=== PATIENT | female | born 1980 | race Caucasian/White ===

== ENCOUNTER 2020-04-27 18:47 | Emergency (ER) | payer OTHER ==
[~2020-04-27] VITALS: Ht 165.1 cm; Wt 75.0 kg
--- NOTE | 2020-04-27 19:10 | PHYS DOC ---
Past History Past Surgical History: Cholecystectomy, Tonsillectomy General Adult EDM: Chief Complaint: NAUSEA/VOMITING/DIARRHEA HPI: HPI: ".. I just so .. Nauseated..... Not actively vomiting been constant. Last 24-48 hrs. Stomach symptoms that abdomen, crampy hyperactive...." Patient is 40 year old female dependent who presents with above hx and complaints generalized abdomen discomfort, nausea, and malaise. Patient normally follows at [facility] for care. Did have a recent tonsillectomy on 04/23. Has had previous gallstone removal 2019. No specific history of bad food. Eating the same food as everyone else no one else is ill. No specific ill contacts. Is on city water. Patient did try 8 mg of Zofran earlier today and then 4 mg later no response to the nausea. Patient does not feel she can be since has had a surgical clipping. No recent travel outside the [place] area. Patient's had previous abdomen surgery of cholecystectomy and 2019 and x2. Patient normally follows at [facility] for care. Review of Systems: Review of Systems: Constitutional: Denies fever or chills Eyes: Denies change in visual acuity HENT: Denies nasal congestion or sore throat Respiratory: Denies cough or shortness of breath Cardiovascular: Denies chest pain or edema GI: Mild generalized abdominal pain, nausea,. No active vomiting, bloody stools or diarrhea : Denies dysuria Musculoskeletal: Denies back pain or joint pain Integument: Denies rash Neurologic: Denies headache, focal weakness or sensory changes Endocrine: Denies polyuria or polydipsia Lymphatic: Denies swollen glands Psychiatric: Denies depression or anxiety Family History: Family History: Noncontributory to presentation Current Medications: Current Meds: See nursing for home meds Allergies: Allergies: Allergic to Celebrex and codeine Physical Exam: PE: Constitutional: Moderate acute distress, non-toxic appearance. [] HENT: Normocephalic, atraumatic, bilateral external ears normal, oropharynx dry,, no oral exudates, nose normal. Eschar from tonsillectomy Eyes: PERRLA, EOMI, conjunctiva normal, no discharge. [] Neck: Normal range of motion, no tenderness, supple, no stridor. [] Cardiovascular:Heart rate regular rhythm, no murmur [] Lungs & Thorax: Bilateral breath sounds equal apex on auscultation [] Abdomen: Bowel sounds hyperactive, soft, central abdomen tenderness, no masses, no pulsatile masses. [] Rebound central abdomen. Old surgical scars. Skin: Warm, dry, no erythema, no rash. [] Back: No tenderness, no CVA tenderness. [] Extremities: No tenderness, no cyanosis, no clubbing, ROM intact, no edema. No psoas sign. Neurologic: Alert and oriented X 3, normal motor function, normal sensory function, no focal deficits noted. [] Psychologic: Affect anxious, judgement normal, mood normal. [] EKG: EKG: [] Radiology/Procedures: Radiology/Procedures: [] Heart Score: Risk Factors: Risk Factors: DM, Current or recent (<one month) smoker, HTN, HLP, family history of CAD, obesity. Risk Scores: Score 0 - 3: 2.5% MACE over next 6 weeks - Discharge Home Score 4 - 6: 20.3% MACE over next 6 weeks - Admit for Clinical Observation Score 7 - 10: 72.7% MACE over next 6 weeks - Early Invasive Strategies Course & Med Decision Making: Course & Med Decision Making Pertinent Labs and Imaging studies reviewed. (See chart for details) Patient remain on clear fluid diet for the next 24 to 48 hours. Push clear fluids. May take Zofran 8 mg up to 4 times a day for active vomiting. Follow- up primary care. Return if any concerns. Avoid solids or milk products for the next 48 hours must allow bowel rest. Take Pepcid 20 mg twice a day. Follow-up primary care. Consider GERD evaluation and/or EGD. Impression: 1. Nausea and vomiting 2. Dehydration 3. Abdomen pain 4. History of recent tonsillectomy 04/23 [] Dragon Disclaimer: Dragon Disclaimer: This electronic medical record was generated, in whole or in part, using a voice recognition dictation system. Departure Departure: Referrals: PCP,UNKNOWN (PCP) Scripts Oxycodone Hcl/Acetaminophen (PERCOCET 5-325 MG TABLET ) 1 Each Tablet 1 TAB PO PRN Q6HRS PRN for PAIN, #30 TAB Prov: SUNNY MADRIGAL MD 04/27/20 Ondansetron Hcl (ZOFRAN) 4 Mg Tablet 8 MG PO QIDPRN for nv, #30 TAB Prov: SUNNY MADRIGAL MD 04/27/20 Famotidine (PEPCID) 20 Mg Tablet 20 MG PO BID for gerd, #60 TAB Prov: SUNNY MADRIGAL MD 04/27/20 Dragon Disclaimer This chart was dictated in whole or in part using Voice Recognition software in a busy, high-work load, and often noisy Emergency Department environment. It may contain unintended and wholly unrecognized errors or omissions. SUNNY MADRIGAL MD Apr 27, 2020 19:10
[2020-04-27] MEDS ORDERED: oxyCODONE/APAP 5/325 1 TAB TABLET PO ONE (19:30)
[2020-04-27] MEDS ORDERED: FAMOTIDINE 20 MG/2 ML VIAL IVP ONE (19:30)
[2020-04-27] MEDS ORDERED: IV RINGERS SOLUTION,LACTATED 1,000 ML IV SCH (19:30)
[2020-04-27] MEDS ORDERED: ONDANSETRON PF 4 MG/2 ML VIAL. IVP ONE (19:30)
[2020-04-27] MEDS ORDERED: oxyCODONE/APAP 5/325 1 TAB TABLET ONE (19:31)
[2020-04-27 19:52] LABS: BASO % 0 % (0-3); EOS % 0 % (0-3); HEMATOCRIT 43.5 % (36.0-47.0); HEMOGLOBIN 14.8 g/dL (12.0-15.5); LYMPH # 1.4 x10^3/uL (1.0-4.8); LYMPH % 12 % (24-48); MEAN CORPUSCULAR HEMOGLOBIN 30 pg (25-35); MEAN CORPUSCULAR HGB CONC 34 g/dL (31-37); MEAN CORPUSCULAR VOLUME 87 fL (79-100); MONO # 0.4 x10^3/uL (0.0-1.1); MONO % 3 % (0-9); NEUT # 9.8 x10^3uL (1.8-7.7); NEUT % 85 % (31-73); PLATELET COUNT 327 x10^3/uL (140-400); RED BLOOD COUNT 5.02 x10^6/uL (3.50-5.40); RED CELL DISTRIBUTION WIDTH 12.6 % (11.5-14.5); WHITE BLOOD COUNT 11.5 x10^3/uL (4.0-11.0)
[2020-04-27 19:55] LABS: BARBITURATES NEG (NEG); BENZODIAZEPINES NEG (NEG); CANNABINOIDS NEG (NEG); COCAINE NEG (NEG); METHADONE NEG (NEG); OPIATES NEG (NEG); PHENCYCLIDINE NEG (NEG)
[2020-04-27 19:59] LABS: AMPHETAMINE/METHAMPHETAMINE NEG (NEG)
[2020-04-27 20:03] LABS: GFR 61.4; POTASSIUM 3.8 mmol/L (3.5-5.1)
[2020-04-27 20:09] LABS: ALBUMIN 3.9 g/dL (3.4-5.0); DIRECT BILIRUBIN 0.2 mg/dL (0.0-0.2); TOTAL BILIRUBIN 0.6 mg/dL (0.2-1.0); TOTAL PROTEIN 8.1 g/dL (6.4-8.2)
[2020-04-27 21:44] LABS: BILIRUBIN,URINE NEG (NEG); CLARITY,URINE CLEAR; COLOR,URINE YELLOW; GLUCOSE,URINE NEG (NEG); NITRITE,URINE NEG (NEG)
[2020-04-27 21:46] LABS: BACTERIA,URINE FEW /HPF (0-FEW); RBC,URINE OCC /HPF (0-2); SQUAMOUS EPITHELIAL CELL,UR OCC /LPF; WBC,URINE OCC /HPF (0-4)
[2020-04-27] MEDS ORDERED: FAMO-63 PO (21:58)
[2020-04-27] MEDS ORDERED: ONDA4TAB7 PO (21:58)
[2020-04-27] MEDS ORDERED: OXYC1TAB15 PO (21:58)
[2020-04-27 22:08] VITALS: BP 130/80
== END 2020-04-27 22:15 | disposition home or self-care (01) ==
LOC: ER 18:47
DX: E86.0 Dehydration (principal); R11.2 Nausea with vomiting, unspecified; R10.84 Generalized abdominal pain; Z90.49 Acquired absence of other specified parts of digestive tract; Z88.8 Allergy status to other drugs, medicaments and biological substances; Z88.5 Allergy status to narcotic agent
CPT/HCPCS: 36415; 80048; 80076; 80307; 81001; 81025; 82150; 83690; 85025; 96361; 96374; 96375; 99285; J2405; J3490; J7120